=== PATIENT | female | born 1945 | race Caucasian/White ===

== ENCOUNTER → 2019-05-28 09:34 | Outpatient (CLI) | payer MEDICARE, SELFPAY ==
[2019-05-28 13:55] LABS: Basophils # 0.1 K/mm3 (0-0.2); Basophils % 0.5 % (0.1-2.0); Eosinophils # 0.2 K/mm3 (0.0-0.4); Eosinophils % 2.3 % (0.1-12.0); Hematocrit 37.3 % (37.0-47.0); Hemoglobin 11.7 g/dL (12.2-16.2); Lymphocytes # 2.5 K/mm3 (0.7-4.5); Lymphocytes % 23.3 % (10-50); Mean Corpuscular HGB Conc 31.3 g/dL (31.8-35.4); Mean Corpuscular Hemoglobin 28.1 pg (27.0-31.2); Mean Corpuscular Volume 89.7 fl (81-99); Mean Platelet Volume 6.9 fl (7.4-10.4); Monocytes # 0.6 K/mm3 (0.1-1.0); Monocytes % 5.8 % (1.7-9.3); Neutrophils # 7.2 K/mm3 (1.8-7.8); Neutrophils % 68.1 % (37.0-80.0); Platelet Count 512 K/mm3 (142-424); Red Blood Count 4.16 M/mm3 (4.20-5.40); Red Cell Distribution Width 13.7 % (11.5-17.5); White Blood Count 10.6 K/mm3 (4.8-10.8)
[2019-05-28 14:35] LABS: Alanine Aminotransferase 19 U/L (12-78); Albumin Level 3.4 gm/dL (3.4-5.0); Albumin/Globulin Ratio 0.9 (1.1-1.8); Alkaline Phosphatase 202 U/L (46-116); Anion Gap 12.3 mEq/L (5-15); Aspartate Amino Transferase 9 U/L (15-37); Bilirubin,Total 0.3 mg/dL (0.2-1.0); Blood Urea Nitrogen 18 mg/dL (7-18); Calcium 9.3 mg/dL (8.5-10.1); Carbon Dioxide 26 mmol/L (21.0-32.0); Chloride 106 mmol/L (98-107); Creatinine,Serum 1.11 mg/dL (0.55-1.02); Estimated Glomerular Filt Rate 48 ml/min (>60); Free T4 (Free Thyroxine) 1.71 ng/dl (0.76-1.46); GFR (African American) 58 ML/MIN (>60); Globulin 3.8 gm/dl (1.3-3.2); Glucose 95 mg/dL (74-106); Potassium 4.3 mmoL/L (3.5-5.1); Sodium 140 mmol/L (136-145); Thyroid Stimulating Hormone 0.03 uIU/ml (0.358-3.740); Total Protein,Serum 7.2 gm/dL (6.4-8.2)
[2019-05-30 06:14] LABS: Vitamin B12 218 pg/mL (232-1245)
[2019-05-30 13:23] LABS: Alkaline Phosphatase 185 IU/L (39-117); Bone Fraction: 33 % (14-68); Liver Fraction: 62 % (18-85)
[2019-05-30 14:10] LABS: Albumin 3.6 g/dL (2.9-4.4); Alpha-1-Globulin 0.3 g/dL (0.0-0.4); Alpha-2-Globulin 0.9 g/dL (0.4-1.0); Gamma Globulin 1.3 g/dL (0.4-1.8); Protein, Total 7.2 g/dL (6.0-8.5)
[2019-05-30 17:11] LABS: Peripheral Smear Review Scanned Result
[2019-05-30 20:34] LABS: Intestinal Frac.: 5 % (0-18)
== END ==
PROVIDERS: PCP Nurse Practitioner Family; Visit Provider Nurse Practitioner Family
DX: R74.8 Abnormal levels of other serum enzymes (principal); N18.3 Chronic kidney disease, stage 3 (moderate); D47.3 Essential (hemorrhagic) thrombocythemia; I12.9 Hypertensive chronic kidney disease with stage 1 through stage 4 chronic kidney disease, or unspecified chronic kidney disease
CPT/HCPCS: 36415; 80053; 82607; 82652; 84075; 84080; 84155; 84165; 84439; 84443; 85025

== ENCOUNTER → 2019-06-19 09:24 | Outpatient (CLI) | payer MEDICARE, SELFPAY ==
[2019-06-19 09:59] LABS: Blood Urea Nitrogen 14 mg/dL (7-18); Creatinine,Serum 1.13 mg/dL (0.55-1.02); Estimated Glomerular Filt Rate 47 ml/min (>60); GFR (African American) 57 ML/MIN (>60)
--- NOTE | 2019-06-19 10:00 | CT_ITS ---
PROCEDURE: CT ABDOMEN WO/W CON CLINICAL HISTORY: UPPER ABD PAIN Upper abdominal pain, nausea, chronic kidney disease, mid abdominal pain, mid epigastric pain with nausea COMPARISON: No exams were available for comparison TECHNIQUE: 75 mL Optiray 350 Axial images obtained with sagittal and coronal reformats. All CT scans at the facility use one or more dose reduction, viz: automated exposure control, ma/kV adjustment per patient size (including targeted exams where dose is matched to indication, i.e. head), or iterative reconstruction technique. FINDINGS: No acute finding in the lung bases. The liver, spleen, adrenal glands, and pancreas have an unremarkable appearance. There are bilateral renal cysts noted. No renal or ureteral calculi. No hydronephrosis. No suspicious renal mass. No intestinal obstruction or free air. Nonspecific bowel gas pattern. The pelvis is not included in the exam. There are degenerative changes in the spine. IMPRESSION: Small bilateral renal cyst. No suspicious renal mass. No acute finding. Dictated by: Jose Rojas MD 06/20/2019 10:07 Signed by: <Electronically signed by Jose Rojas MD in [facility]> 06/20/2019 10:07
--- NOTE | 2019-06-19 10:00 | XR_ITS ---
PROCEDURE: XR CHEST 2V CLINICAL HISTORY: UPPER ABD PAIN Epigastric pain COMPARISON: No exams were available for comparison FINDINGS: The cardiomediastinal silhouette and pulmonary vascularity are within normal limits. Right hemidiaphragm is elevated. There is a calcified granuloma in the left lower lobe. The lungs are otherwise clear Degenerative change thoracic spine IMPRESSION: No acute findings. Dictated by: Jose Rojas MD 06/19/2019 12:22 Signed by: <Electronically signed by Jose Rojas MD in [facility]> 06/19/2019 12:22
== END ==
PROVIDERS: PCP Nurse Practitioner Family; Visit Provider Nurse Practitioner Family
DX: R10.10 Upper abdominal pain, unspecified (principal)
CPT/HCPCS: 36415; 71046; 74170; 82565; 84520; Q9967

== ENCOUNTER → 2019-07-21 08:34 | Outpatient (POV) | payer MEDICARE, SELFPAY | PROVIDERS: PCP Nurse Practitioner Family; Visit Provider Nurse Practitioner Family | DX: Z00.00 Encounter for general adult medical examination without abnormal findings (principal) ==